=== PATIENT | female | born 1980 | race African-American/Black ===

== ENCOUNTER 2016-11-10 12:00 | Emergency (ER) | payer OTHER ==
[~2016-11-10] VITALS: Ht 165.1 cm; Wt 82.0 kg
[2016-11-10 12:02] VITALS: BP 105/73; PULSE 97; RESP 16; TEMP 98.2; O2SAT 99
--- NOTE | 2016-11-10 12:20 | PD ---
HPI Chief Complaint: Injury Time Seen by Provider: 12:20 Travel History International Travel<30 days: No Contact w/Intl Traveler<30days: No Traveled to known affect area: No History of Present Illness HPI 36-year-old female presents to the emergency Department with complaint of right knee pain after jumping [place] about 30 minutes ago. She states that she tried walking on it afterwards and the pain became so severe she could no longer walk on it. Reports shooting pains down her leg from her knee. Denies paresthesias, loss of sensation to the affected extremity. Reports decreased range of motion at the right knee. Has not taken any medications to relieve her symptoms. Has tried icing the knee and says it made the symptoms worse. Symptoms are moderate in severity. Allergies to penicillin. Has no other medical complaints. No other modifying factors or associated signs and symptoms. PFSH Past Medical History Depression: Yes Sickle Cell Disease: Yes (TRAIT ONLY ) ?: Not : 7 Para: 3 Miscarriage: 2 : 2 Past Surgical History Hysterectomy: Yes (PARTIAL) Social History Alcohol Use: Yes (OCC) Tobacco Use: No Substance Use: No Allergies-Medications (Allergen,Severity, Reaction): Coded Allergies: Penicillins (Verified Allergy, Unknown, 11/10/16) Reported Meds & Prescriptions Reported Meds & Active Scripts Active Ibuprofen 800 Mg Tab 800 Mg PO Q6HR PRN Review of Systems Except as stated in HPI: all other systems reviewed are Neg Physical Exam Narrative GENERAL: Well-nourished, well-developed female patient, in no acute distress; afebrile, nontoxic-appearing SKIN: Warm and dry. HEAD: Atraumatic. Normocephalic. EYES: Pupils equal and round. No scleral icterus. No injection or drainage. ENT: Mucosa pink and moist. Airway patent. NECK: Trachea midline. CARDIOVASCULAR: Regular rate. RESPIRATORY: No accessory muscle use. GASTROINTESTINAL: Round. MUSCULOSKELETAL: Right knee mildly edematous; without erythema or ecchymosis.; flexion to a little less than 90; point tenderness to the posterior aspect; joint stable with negative drawer test; no obvious deformity. Right Lower extremity is supple and non-tense with 2+ pedal pulse and sensory intact and without erythema or edema. Unable to assess ambulation. No cyanosis. No clubbing. No edema. NEUROLOGICAL: Awake and alert. Oriented 3. No obvious cranial nerve deficits. Motor grossly within normal limits. Normal speech. PSYCHIATRIC: Appropriate mood and affect; insight and judgment normal. Data Data Last Documented VS Vital Signs Date Time Temp Pulse Resp B/P Pulse Ox O2 Delivery O2 Flow Rate FiO2 11/10/16 12:02 98.2 97 16 105/73 99 Orders Knee, Complete (4vws) (11/10/16 12:12) Crutches (11/10/16 12:12) Ibuprofen (Motrin) (11/10/16 12:30) Immobilizer Knee 20 Inch (11/10/16 ) Canvas Knee Splint (Cks) (11/10/16 ) [facility] Medical Decision Making Medical Screen Exam Complete: Yes Emergency Medical Condition: Yes Medical Record Reviewed: Yes Differential Diagnosis Knee strain, ligament tear, meniscal tear, fracture Narrative Course 36-year-old female with right knee injury. Ibuprofen administered in the ER. Patient declined an ice pack. Right knee x-ray ordered. 1340: Right knee x-ray with no acute findings. Canvas knee splint and crutches provided for support. Crutches provided for support. Ibuprofen prescribed for home. Instructed patient to follow up with orthopedics. Instructed patient to follow up with primary care provider. Patient verbalizes understanding and agreement with treatment plan. Patient is medically cleared and stable for discharge. Discussed reasons to return to the emergency department. Patient agrees with treatment plan. The patients vital signs are stable and the patient is stable for outpatient follow-up and treatment. Patient discharged home, stable and in no acute distress. Diagnosis Primary Impression: Right knee injury Qualified Code: S89.91XA - Injury of right knee, initial encounter Referrals: Orthopaedic Surgeon Primary Care Physician Patient Instructions: Crutch Instructions (ED), General Instructions, Knee Sprain (ED) Departure Forms: Tests/Procedures, Work Release Special Instructions: Unable to return to work until cleared by primary care provider or orthopedics Additional Instructions: Tylenol or ibuprofen as needed and as directed to reduce pain and inflammation Rest, ice, compress, and elevate extremity to decrease pain and inflammation Knee brace for support Crutches for support Avoid aggravating activity; increase activity as tolerated Follow-up with primary care provider Follow-up with orthopedics Return to the emergency department immediately with worsening symptoms Med/Other Pt SpecificInfo: Prescription(s) given Scripts Ibuprofen 800 Mg [id number] Mg PO Q6HR PRN (PAIN) #30 TAB Ref 0 Prov:Bindu Islas 11/10/16 Disposition: 01 DISCHARGE HOME Condition: Stable Bindu Islas Nov 10, 2016 12:20
[2016-11-10] MEDS ORDERED: IBUPROFEN 800 MG TAB PO ONE (12:30)
[2016-11-10] MEDS ORDERED: IBUP800T23 PO (12:34)
--- NOTE | 2016-11-10 13:33 | RADRPT ---
EXAM DATE/TIME: 11/10/2016 13:25 [facility] COMPARISON: No previous studies available for comparison. INDICATIONS : Pt. c/o right knee pain after jumping on trampoline. MEDICAL HISTORY : None. SURGICAL HISTORY : None. ENCOUNTER: Initial ACUITY: 1 day PAIN SCORE: 10/10 LOCATION: Right Knee. FINDINGS: Four view examination of the right knee demonstrates no evidence of fracture or dislocation. Bony mi neralization is normal. The articular surfaces are intact. The suprapatellar soft tissues have a no rmal configuration. CONCLUSION: Negative trauma study. Scot Agudelo MD on November 10, 2016 at 13:30 Board Certified Radiologist. This report was verified electronically.
== END 2016-11-10 14:39 | disposition home or self-care (01) ==
LOC: NEPK 12:00
DX: S89.91XA Unspecified injury of right lower leg, initial encounter (principal); X50.0XXA Overexertion from strenuous movement or load, initial encounter
CPT/HCPCS: 73564; 99283; E0113; L1830